=== PATIENT | female | born 2000 | race Caucasian/White ===

== ENCOUNTER 2021-09-02 09:10 | Observation (INO) ==
--- NOTE | 2021-09-01 08:36 | Anesthesiology Consultation ---
Date of Service September 01, 2021 Assessment & Plan (1) Encounter for pre-operative examination: - COVID screening: Per assessment on 09/01: No known COVID-19 positive contacts or current COVID-19 related symptoms. Travel screen- returned from travel to [place] 08/17. Patient vaccinated. Preop Cov[place] test done 08/31 ([place]) was negative. Pt requiring admission post-operatively. Plan for recheck with COVID [facility] AM DOS due to possibility that patient may have a roommate. OR aware. [facility] order placed. - Preop testing: BMI > 40. At anesthesiologist discretion AM DOS if anything further needed preoperatively from their perspective. Chart Review Chart Review: Acceptable Risk for Surgery and Patient NOT seen in Pre Admission Testing History Surgery Operation Date: 09/02/21 11:10 Proposed Procedures p Bilateral Non-Cancerous Mastectomy with Free Nipple Grafting - Radha Stacy MD Height/Weight Height: 5 ft 2 in Weight: 115.666 kg Allergies Allergy/AdvReac Type Severity Reaction Status Date / Time No Known Drug Allergies Allergy Verified 09/02/21 09:36 Algie Allergy Unknown Nausea, Uncoded 09/02/21 09:36 diffuse itching Medications Home Medications Medication Instructions Recorded Confirmed Last Taken escitalopram oxalate 20 mg tablet 20 mg PO QAM 04/21/19 09/02/21 09/01/21 09:00 (Lexapro) montelukast 10 mg tablet 10 mg PO PM 04/21/19 09/02/21 09/02/21 01:00 (Singulair) levonorgestrel 20 mcg/24 hours (7 1 device INTRAUTERINE UD 11/07/19 09/02/21 05/23/19 yrs) 52 mg intrauterine device (Mirena) testosterone cypionate 100 mg/mL 0.4 mg SUBCUT .COMPLEX ml 11/21/19 09/02/21 08/31/21 22:00 intramuscular oil bupropion HCl 100 mg tablet 100 mg PO QPM tab 09/08/20 09/02/21 09/02/21 01:00 buspirone 15 mg tablet 15 mg PO TID tab 09/08/20 09/02/21 09/02/21 01:00 cholecalciferol (vitamin D3) 125 125 mcg PO QAM 06/14/21 06/08/22 05/24/22 mcg (5,000 unit) capsule ketoconazole 2 % shampoo 1 applic TOPICAL .COMPLEX #120 ml 09/10/20 09/02/21 08/18/21 melatonin 5 mg tablet 5 mg PO HS PRN 02/05/21 09/02/21 08/18/21 metformin 500 mg tablet,extended 1,000 mg PO BID #120 tab 05/26/21 09/02/21 08/31/21 08:00 release 24 hr enoxaparin 40 mg/0.4 mL 40 mg SUBCUT DAILY #4 ml 08/18/21 09/02/21 Unknown subcutaneous syringe (Lovenox) hydroxyzine HCl 10 mg tablet 10 mg PO TID PRN 08/18/21 09/02/21 07/28/21 oxycodone-acetaminophen 5 mg-325 1 tab PO Q4H PRN #18 tab 08/18/21 09/02/21 Unknown mg tablet (Endocet) topiramate 25 mg tablet 10 mg PO HS tab 08/18/21 09/02/21 09/02/21 01:00 lansoprazole 30 mg capsule,delayed 30 mg PO DAILY PRN 09/01/21 09/02/21 08/28/21 release (Prevacid) Active Medications Generic Name Dose Route Start Last Admin Trade Name Freq PRN Reason Stop Dose Admin Lactated Ringer's 1,000 mls @ 15 mls/hr 09/02/21 06:00 09/02/21 10:09 Lr IV 09/03/21 05:59 15 mls/hr .Q24H HYACINTH Administration Past Medical History Medical History Anxiety Binge eating disorder Controlled per pt Borderline personality disorder Depression [id number] transgender person GERD (gastroesophageal reflux disease) Migraine Morbid obesity Pre-diabetes Reason for Metformin Past Family History Family History Mother Anxiety Asthma Father Hypertension Grandmother (Paternal) Diabetes Family/Other Family hx of colon cancer PATERNAL GREAT UNCLE Other No pertinent family history Past Surgical History Surgical History No pertinent past surgical history Social History Smoking Status: Never smoker Physical Exam Vital Signs Last Vital Signs Temp 37.2 C 09/02/21 09:50 Pulse 93 H 09/02/21 09:50 Resp 20 09/02/21 09:50 BP 137/91 09/02/21 09:50 Pulse Ox 97 09/02/21 09:50 Lab Results Anesthesia Preop Results Results Anesthesia Widget: WBC 8.36 K/uL (4.8-10.8) 08/31/21 Hgb 15.4 g/dL (12.0-16.0) 08/31/21 Hct 45.5 % (37-47) 08/31/21 Plt 384 K/uL (130-400) 08/31/21 Na 137 mmol/L (136-145) 08/31/21 K 4.1 mmol/L (3.5-5.1) 08/31/21 Cl 108 mmol/L (98-107) H 08/31/21 CO2 22 mmol/L (21-32) 08/31/21 BUN 10 mg/dl (6-23) 08/31/21 Creat 0.91 mg/dl (0.6-1.2) 08/31/21 Glucose Level 84 mg/dl (70-99(Fasting)) 08/31/21 POC Glucose 103 mg/dl (70-99) H 09/02/21 PT 9.8 Seconds (9.0-12.0) 08/31/21 INR 0.9 (0.9-1.1) 08/31/21 SARS-CoV-2, RNA, NAAT NEGATIVE (NEGATIVE) 09/02/21 Testing Laboratory Results 09/02/21 09:35 POC Glucose 103 H Echocardiogram Date: 02/25/21 EF 55-60%. No regional motion abnormality. No significant valvular disease.
[~2021-09-02 09:10] MED LIST: LR 15ML/HR IV SCH
[2021-09-02] MEDS ORDERED: PROPOFOL IV EMULSION 10 MG/ML 20 ML VIAL IV ONE ×2 (09:24→16:03)
[2021-09-02] MEDS ORDERED: fentaNYL citrate 100 MCG/2 ML VIAL ONE ×2 (09:24→13:24)
[2021-09-02] MEDS ORDERED: ROCURONIUM BROMIDE 10 MG/ML 5 ML VIAL IV ONE (09:24)
[2021-09-02] MEDS ORDERED: LIDOCAINE 2% 2 ML VIAL/AMP(20MG/ML) INFIL ONE (09:24)
[2021-09-02] MEDS ORDERED: MIDAZOLAM HCL 1 MG/ML 2ML VIAL ONE (09:25)
[2021-09-02] MEDS ORDERED: KETAMINE 50 MG/5 ML SYRINGE ONE (09:25)
[2021-09-02] MEDS ORDERED: ACETAMINOPHEN 1000 MG/100 ML IV IV ONE (10:16)
[2021-09-02 10:21] LABS: Pregnancy Test, Serum Negative (Negative)
[2021-09-02] MEDS ORDERED: ONDANSETRON INJ 2 MG/ML 2 ML VIAL IV PRN (10:21)
[2021-09-02] MEDS ORDERED: ATROPINE SULFATE 0.1 MG/ML 10ML SYR IV PRN (10:21)
[2021-09-02] MEDS ORDERED: HYDROmorphone INJ 1 MG/ML SYRINGE IV PRN (10:21)
[2021-09-02] MEDS ORDERED: ePHEDrine sulfate 50 MG/ML AMP IV PRN (10:21)
[2021-09-02] MEDS ORDERED: SCOPOLAMINE 1 MG TDSY TD ONE ×2 (10:33→10:35)
--- NOTE | 2021-09-02 11:53 | History & Physical Bridge Note ---
Date of Service September 02, 2021 History & Physical Bridge Note I have examined the patient, reviewed the History & Physical and in the interval since the performance of the History & Physical I have noted the following changes of clinical significance: no changes noted
[2021-09-02] MEDS ORDERED: LIDOCAINE 1%/EPINEPHRINE 1:100,000 50 ML VIAL ONE (11:57)
[2021-09-02] MEDS ORDERED: BUPIVACAINE 0.25% 30 ML VIAL ONE (11:57)
[2021-09-02] MEDS ORDERED: TISSEEL FIBRIN SEALANT 4ML TOP ONE (13:09)
[2021-09-02] MEDS ORDERED: ONDANSETRON INJ 2 MG/ML 2 ML VIAL ONE (14:51)
[2021-09-02] MEDS ORDERED: ceFAZolin 330 MG/ML 1 GM VIAL ONE (15:02)
[2021-09-02] MEDS ORDERED: HYDROmorphone INJ 1 MG/ML SYRINGE ONE (15:47)
--- NOTE | 2021-09-02 16:15 | Post Operative Brief Note ---
PG Immediate Post Op with CF Date of Surgery September 02, 2021 Pre & Post Diagnosis Operation Date: 09/02/21 11:10 Pre-Op Diagnosis: Female to Male Transgender Person Post-Op Diagnosis: Female to Male Transgender Person I identified the patient and participated in the time-out.: Yes Procedure Operation Date: 09/02/21 11:10 Actual Procedures p Bilateral Non-Cancerous Mastectomy with Free Nipple Grafting(Bilateral) - Radha Stacy MD Surgeon Radha Stacy MD Practice Specialist Tanesha Waterman PA-C Estimated Blood Loss 50 Findings Consistent with Post-Op Diagnosis Specimens Specimen Description: a. left breast tissue b. right breast tissue Drains Giovani-Dominique Drain (15fr drain - right breast; 15fr drain - left breast)
--- NOTE | 2021-09-02 16:43 | Anesthesiology Progress Note ---
Date of Service September 02, 2021 Anesthesia Post Procedure Vital Signs Vital Signs: Temp Pulse Pulse Resp BP BP Pulse Ox 09/02/21 16:35 103 H 17 136/90 97 09/02/21 16:25 36.6 C 110 H 16 141/73 H 96 09/02/21 09:50 37.2 C 93 H 20 137/91 97 Transfer of Care Handoff Completed per policy Notes Mental Status: alert / awake / arousable and participated in evaluation Patient Amnestic to Procedure: Yes Nausea / Vomiting: adequately controlled Pain: adequately controlled Airway Patency, RR, SpO2: stable & adequate BP & HR: stable & adequate Hydration State: stable & adequate Anesthetic Complications: no major complications apparent and Pt Satisfied with anesthetic care
--- NOTE | 2021-09-02 16:47 | Operative Report ---
PG Post Operative Report Pre & Post Diagnosis Operation Date: 09/02/21 11:10 Pre-Op Diagnosis: Female to Male Transgender Person Post-Op Diagnosis: Female to Male Transgender Person I identified the patient and participated in the time-out.: Yes Procedure Operation Date: 09/02/21 11:10 Actual Procedures p Bilateral Non-Cancerous Mastectomy with Free Nipple Grafting(Bilateral) - Radha Stacy MD Surgeon Radha Stacy MD Music Sound Light Technician Tanesha Waterman PA-C Estimated Blood Loss 50 Findings Consistent with Post-Op Diagnosis Specimens Bilateral breasts to pathology Drains JPx2 Anesthesia Type General Complications none Indications Transgender male desiring gender affirming mastectomy Description of Procedure The risks benefits and alternatives of the procedure were explained to the patient who agreed and signed consent. He was identified and marked in the preoperative holding area. I marked the incisions along the inframammary folds and made the superior incision in an elliptical fashion in order to provide a horizontal scar pattern if possible. Nipple site was confirmed with the patient. He was brought to the operating room where he was placed under general anesthesia in supine position without incident. Surgical site was prepped and draped sterilely. A time out procedure was performed. 1% lidocaine with epinephrine was used to anesthetize the planned incisions. Nipple areolar complex grafts were harvested. I elected to use a 28 mm cookie cutter to size an areolar graft. It was harvested using a 15 blade scalpel and was defatted using a curved iris scissor.A 15 blade scalpel was used to harvest a separate nipple graft. They were placed on the back table in a saline soaked sponge until I was ready to place the grafts. I began by making the inferior incision using 15 blade scalpel. Incision was deepened through dermis using electrocautery, and deepened down to the chest wall. I began raising the breast off of underlying pectoralis fascia, divided the breast in the midline and then temporarily sutured it to the inframammary fold to confirm wound closure would be possible. I then marked the superior incision, which was made with a 15 blade scalpel and deepened using electrocautery. The breast was passed off as specimen. Superiorly, breast was undermined to the clavicle and the superior flap was minimally thinned until it was of uniform thickness, approximately 4 cm in thickness and equal to the thickness of the abdominal subcutaneous tissue. I did not elect to further thin the superior flaps in order to prevent contour deformity and provide a chest contour consistent with the patient's overall body habitus. Throughout dissection, hemostasis was achieved using the bovie. I did perform some additional undermining inferiorly along the inframammary fold to facilitate closure and disrupt the inframammary fold. Standing cutaneous deformities did develop and were excised bilaterally prior to closure. Prior to closure, the wound was irrigated, examined for hemostasis. A 15 [place] Oscar drain was placed in the wound bed and brought out through a separate stab incision laterally.I partially closed with 2-0 Vicryl and then sprayed with Tisseel. Patient was placed in a seated position prior to completion of closure to double check flap thickness and overall contour. Deep dermis was closed using 2-0 Vicryl interrupted sutures, superficial dermis closed using 3-0 PDO running Quill suture, and subcuticular wound closure was performed using 3-0 Monocryl. Following closure, the nipple areolar complex was inset. I made an incision at the lateral border of pectoralis and just superior to the incision. This was de-epithelialized. The nipple areolar graft was inset first using 5-0 plain gut suture. An identical procedure was performed on the right side. Xeroform was placed over the nipple grafts. Given patient's elevated body mass index and risk for wound healing complications, I elected to place a Prevena wound VAC on the incisions, covering the graft as well to provide a bolster to the graft. Dry dressings and drain sponges were placed. A binder was placed. Procedure was tolerated well. Patient was awakened and transferred to the recovery room in satisfactory condition. Tanesha Waterman PA-C was present and scrubbed throughout the entire procedure. She assisted in retraction, hemostasis, preparation of the nipple grafts and simultaneous wound closure. I attest to the content of the Intraoperative Record and any orders documented therein. Any exceptions are noted below.
[2021-09-02] MEDS: fentaNYL citrate 100 MCG/2 ML VIAL IV PRN ×2 (17:30→17:35)
[2021-09-02] MEDS ORDERED: ONDANSETRON 4 MG OD TAB PO PRN (18:17)
[2021-09-02] MEDS ORDERED: diphenhydrAMINE Capsule 25 MG CAP PO PRN (18:17)
[2021-09-02] MEDS ORDERED: oxyCODONE/ACETAMINOPHEN 5mg/325mg TAB PO PRN (18:17)
[2021-09-02] MEDS ORDERED: diphenhydrAMINE 50 MG/ML VIAL IV PRN (18:17)
[2021-09-02] MEDS ORDERED: MoRPHine SULFATE 2 MG/ML CARP IV PRN (18:17)
[2021-09-02] MEDS ORDERED: MoRPHine SULFATE 4 MG/ML 1 ML CARP\\VIAL IV PRN (18:17)
[2021-09-02] MEDS ORDERED: hydrOXYzine HCl 10 MG TAB PO PRN (18:17)
[2021-09-02] MEDS ORDERED: PANTOprazole 40 MG TAB PO PRN (18:34)
[2021-09-02] MEDS: CHECK SCOPOLAMINE PATCH PLACEMENT SCH ×2 (18:41→23:20)
[2021-09-02] MEDS: busPIRone 15 MG TAB PO SCH (20:20)
[2021-09-02] MEDS: ceFAZolin 2000MG 2,000 MG/15 ML SYR IV SCH (20:21)
[2021-09-02] MEDS ORDERED: TOPIRAMATE 25 MG TAB PO SCH (21:00)
[2021-09-02] MEDS ORDERED: MONTELUKAST SODIUM 10 MG TABLET PO SCH (21:00)
[2021-09-02] MEDS ORDERED: buPROPion HCl 100 MG TABLET PO SCH (21:00)
[2021-09-02] MEDS: D5W AND 1/2NSS + 20MEQ KCL 20 MEQ/1,000 ML BAG IV SCH (21:06)
[2021-09-02] MEDS: oxyCODONE/ACETAMINOPHEN 5mg/325mg TAB PO PRN (23:19)
[2021-09-03] MEDS: ceFAZolin 2000MG 2,000 MG/15 ML SYR IV SCH (04:41)
[2021-09-03] MEDS: oxyCODONE/ACETAMINOPHEN 5mg/325mg TAB PO PRN (08:12)
[2021-09-03] MEDS: CHECK SCOPOLAMINE PATCH PLACEMENT SCH (08:13)
[2021-09-03] MEDS: D5W AND 1/2NSS + 20MEQ KCL 20 MEQ/1,000 ML BAG IV SCH (08:28)
[2021-09-03] MEDS ORDERED: ENOXAPARIN INJ 40 MG/0.4 ML SYR SQ SCH (09:00)
[2021-09-03] MEDS ORDERED: CHOLECALCIFEROL 1,000 UNITS 25 MCG TAB PO SCH (09:00)
[2021-09-03] MEDS ORDERED: MULTIVITAMIN TAB PO SCH (09:00)
[2021-09-03] MEDS ORDERED: ESCITALOPRAM OXALATE 20 MG TAB PO SCH (09:00)
--- NOTE | 2021-09-03 09:38 | Surgery Progress Note ---
Date of Service September 03, 2021 Assessment & Plan (1) S/P mastectomy, bilateral: Plan: Riley is doing very well POD#1. He will be d/c home today, office follow-up tomorrow. Admission and Anticipated Discharge Date Admission Date: September 02, 2021 Subjective Riley is resting in bed, just finished a full breakfast. He is tolerating regular diet well and has good pain control. He has voided and ambulated. Physical Exam Physical Exam: bilat drains with serosang output. wound vac holding excellent suction. visible soft tissue without erythema Results & Data ([facility]) Vital Signs (Past 12 Hours) Vital Signs Temp Pulse Resp BP Pulse Ox 09/03/21 06:28 37.0 C 87 18 119/86 100 09/03/21 03:14 36.7 C 83 16 101/69 97 09/02/21 23:25 36.8 C 99 H 20 117/75 98 PG Care Time/CCT Total # of Minutes Spent Total Time Spent with Patient: Total time spent is greater than 50% in coordination of care (as documented) at patient's floor/unit and/or counseling patient: Coding Level of Care Code None Diagnoses S/P mastectomy, bilateral Z90.13
[2021-09-03] MEDS: busPIRone 15 MG TAB PO SCH (09:56)
--- NOTE | 2021-09-03 14:06 | Discharge Summary ---
Date of Service September 03, 2021 Admission HPI Per Admitting Provider see admission H&P Admission Exam Per Admitting Provider see admission H&P Principal Diagnosis gender dysphoria Discharge Exam VSS. wound vac holding suction across chest incisions, no erythema of the surrounding soft tissue. drains with serosang output Discharge Data Allergies Allergy/AdvReac Type Severity Reaction Status Date / Time No Known Drug Allergies Allergy . Verified 09/02/21 10:27 Procedures Performed Operation Date: 09/02/21 11:10 Actual Procedures p Bilateral Non-Cancerous Mastectomy with Free Nipple Grafting(Bilateral) - Radha Stacy MD Ordered Studies 09/02/21 05:00 US - OR guided needle placemen Routine Hospital Course (1) S/P mastectomy, bilateral: Patient presented to [facility] with history of gender dysphoria. He was taken to the OR and underwent bilateral non cancerous mastectomy. There were no intraoperative complications. Wound vac was placed over incisions. He was taken to recovery and transferred to med/surg for observation. On POD#1, he was feeling well. He was tolerating a regular diet and ambulating. On exam, his vitals were stable. Wound vac was holding suction. His drains had appropriate serosang output. He was discharged home with instructions to follow-up in the office in one day. Total Time Total Time Spent Total Time Spent (In Minutes): 20 Discharge Plan Discharge Items Patient Disposition: Home - Self-Care Reason For Visit: Female to Male Transgender Person Discharge Diagnosis: s/p bilateral mastectomy Activity: As commented below Non-emergency contact: Surgeon Call non-emergency contact if: you have any medication questions, your pain is not controlled, your wound has increased redness and your wound has increased drainage Follow-up/Referrals: Tanesha Waterman PA-C [Physician [employer]] - 09/04/21 11:00 am [facility] [address] [Primary Care Provider] - Diet: Regular Addtl Attending Provider Instructions: ACTIVITY RECOMMENDATIONS: __Normal activities _x_No bending, lifting or straining. Keep arms at shoudler height or below __No driving __Driving allowed when you are off pain medications _x_Walking permitted __You should have help at home for ___ days DRESSINGS: __No dressings required _x_Keep dressings dry/in place until first office visit. Binder must be on at all times __Remove dressings ___ and leave dressings off __Apply ice ___ days __Remove dressings and reapply garment __Apply antibiotic ointment (Bacitracin, Neosporin, etc) to wounds 3-4 times/day for 10 days BATHING: _x_Keep dressings dry _x_Sponge bathing permitted away from surgical dressings- vac cannot get wet __Showering permitted _x_No swimming, hot tubs or soaking in a tub MEDICATIONS: Resume previous medications unless instructed otherwise by your surgeon. _x_Do not use aspirin, Motrin, Advil or Ibuprofen as these may promote bleeding. Please use Tylenol. _x_Prescription(s) provided: pain medication and antibiotics were prescribed at your last office visit. start antibiotics today. Begin daily Lovenox injections OTHER INSTRUCTIONS: _x_Record drain output 2-3 times per day SPECIAL CARE INSTRUCTIONS: * It is normal to have a mild fever after surgery. If your temperature is higher than 101.5 degrees F, please call the office at [phone]. * Constipation is a typical side effect of pain medication. An natj-scs-omceosi stool softener will help relieve this. * Leaking around surgical drains may occur and should not cause concern. Sometimes these drains become clogged. If this happens, remove the bulb and milk the clot out of the tube, then replace the bulb. * Drainage from wounds after liposuction is normal and should be expected. Garments will become soiled. You should protect furniture and bedding. This drainage should mostly subside within 2-3 days. Leave garments in place unless instructed to remove them. * If you have unusual drainage from a wound or are concerned you have an infection or have any questions or concerns, please call the office at [phone]. FOLLOW UP VISIT: If not already scheduled, please call the office, , when you return home after surgery to schedule an appointment to be seen in _1__ days. Pending Studies at Discharge: Yes Stand-Alone Forms: My [facility] [email or web address], Smoking Cessation Medications and DC Order Prescriptions: Continued ketoconazole 2 % shampoo 1 applic topical .COMPLEX Qty: 120 RF: 2 bupropion HCl 100 mg tablet 100 mg PO QPM RF: 0 cholecalciferol (vitamin D3) 125 mcg (5,000 unit) capsule 125 mcg PO QAM RF: 0 Mirena 20 mcg/24 hours (5 yrs) 52 mg intrauterine device 1 device intrauterine UD RF: 0 testosterone cypionate 100 mg/mL oil 0.4 mg subcut .COMPLEX RF: 0 hydroxyzine HCl 10 mg tablet 10 mg PO TID PRN (Reason: Anxiety) RF: 0 topiramate 25 mg tablet 10 mg PO HS RF: 0 oxycodone-acetaminophen [Endocet] 5-325 mg tablet 1 tab PO Q4H PRN (Reason: pain) Qty: 18 RF: 0 enoxaparin [Lovenox] 40 mg/0.4 mL syringe 40 mg subcut DAILY Qty: 4 RF: 0 montelukast [Singulair] 10 mg Tablet 10 mg PO PM RF: 0 escitalopram oxalate [Lexapro] 20 mg Tablet 20 mg PO QAM RF: 0 buspirone 15 mg tablet 15 mg PO TID RF: 0 melatonin 5 mg tablet 5 mg PO HS PRN (Reason: sleep) RF: 0 lansoprazole [Prevacid] 30 mg Capsule,Delayed Release(Dr/Ec) 30 mg PO DAILY PRN (Reason: Acid Reflux) RF: 0 Discontinued metformin 500 mg tablet extended release 24 hr 1,000 mg PO BID Qty: 120 RF: 1 Discharge Orders: Discharge Order (Routine); Ordered 09/03/21 Ordered By: Tanesha Skinner/Other Patient Handouts: Understanding Deep Vein Thrombosis Admission Data Admit Date/Time: 09/02/21 16:24 Attending Provider: Radha Stacy Admit Provider: Radha Stacy Primary Care Provider: [facility] [address] Other Interventions: Discharge Summary Assessment (RN) Last Done: 09/03/21 10:11 Coding Level of Care Code 42431 OBS Care - Discharge Diagnoses S/P mastectomy, bilateral Z90.13
== END 2021-09-03 12:16 | disposition home or self-care (01) ==
LOC: ASU 09:10 → 3E 09:10